=== PATIENT | male | born 1980 | race Caucasian/White ===

== ENCOUNTER 2017-07-19 11:48 | Emergency (ER) | payer BC ==
[2017-07-19 12:06] VITALS: BP 118/72
--- NOTE | 2017-07-19 14:14 | UC ---
Respiratory Complaint HPI - HPI Summary HPI Summary: worning cough chills and body aches---began at thanks giving now is having cough and fevers, fatigue and body aches - History of Current Complaint Chief Complaint: UCRespiratory Stated Complaint: COUGH,FEVER,CHILLS Time Seen by Provider: 07/19/17 13:37 Hx Obtained From: Patient Onset/Duration: Gradual Onset, Lasting Days, Still Present, Worse Since - past 3 -4 days Timing: Constant Severity Initially: Mild Severity Currently: Moderate Character: Cough: Productive Aggravating Factors: Nothing Alleviating Factors: Nothing Associated Signs And Symptoms: Positive: Fever, Chills, URI - Allergies/Home Medications Allergies/Adverse Reactions: Allergies Allergy/AdvReac Type Severity Reaction Status Date / Time Iodine Allergy Intermediate Hives Verified 07/19/17 11:59 Penicillins Allergy See Comment Verified 07/19/17 11:59 Home Medications: Home Medications ALPRAZolam TAB* [Xanax TAB*] 1 tab TID 07/19/17 [History Confirmed 07/19/17] Escitalopram Oxalate [Lexapro 10 mg] 30 mg DAILY 07/19/17 [History Confirmed ] PMH/Surg Hx/FS Hx/Imm Hx Previously Healthy: Yes Psychological History: Anxiety - Surgical History Surgical History: None - Family History Known Family History: Positive: None - Social History Occupation: Employed Full-time Lives: With Family Alcohol Use: Rare Substance Use Type: Marijuana Substance Use Comment - Amount & Last Used: last week Smoking Status (MU): Former Smoker Type: Cigarettes Amount Used/How Often: 5 CIGS DAILY Have You Smoked in the Last Year: Yes When Did the Patient Quit Smoking/Using Tobacco: 6 WEEKW AGO Household Exposure Type: Cigarettes - Immunization History Most Recent Influenza Vaccination: no Most Recent Tetanus Shot: unknown Review of Systems Constitutional: Fever, Chills, Fatigue Skin: Negative Eyes: Negative ENT: Negative, Ear Ache, Sinus Congestion Respiratory: Cough Cardiovascular: Negative Gastrointestinal: Negative Genitourinary: Negative Motor: Negative Neurovascular: Negative Musculoskeletal: Arthralgia, Myalgia Neurological: Headache Psychological: Negative Is Patient Immunocompromised?: No All Other Systems Reviewed And Are Negative: Yes Physical Exam Triage Information Reviewed: Yes Appearance: Well-Nourished, Ill-Appearing, Pain Distress Vital Signs: Initial Vital Signs Temp 98.7 F 07/19/17 12:00 Pulse 80 07/19/17 12:00 Resp 20 07/19/17 12:00 BP 118/72 07/19/17 12:00 Pulse Ox 97 07/19/17 12:00 Vital Signs Reviewed: Yes Eye Exam: Normal Eyes: Positive: Conjunctiva Clear ENT Exam: Normal ENT: Positive: Normal ENT inspection, Hearing grossly normal, Pharynx normal, Nasal congestion, TMs normal, Uvula midline. Negative: Nasal drainage, Tonsillar swelling, Tonsillar exudate, Trismus, Muffled voice, Hoarse voice, Dental tenderness, Sinus tenderness Dental Exam: Normal Neck exam: Normal Neck: Positive: Supple, Nontender, No Lymphadenopathy Respiratory Exam: Normal Respiratory: Positive: Chest non-tender, Lungs clear, Normal breath sounds, No respiratory distress, No accessory muscle use Cardiovascular Exam: Normal Cardiovascular: Positive: RRR, No Murmur, Pulses Normal, Brisk Capillary Refill Musculoskeletal Exam: Normal Musculoskeletal: Positive: Strength Intact, ROM Intact, No Edema Neurological Exam: Normal Neurological: Positive: Alert, Muscle Tone Normal Psychological Exam: Normal Skin Exam: Normal UC Diagnostic Evaluation - Laboratory O2 Sat by Pulse Oximetry: 97 Respiratory Course/Dx - Course Course Of Treatment: levoquin, ultram, increase fluids, tylenol, ibuprofen rest follow with pcp - Differential Dx/Diagnosis Provider Diagnoses: acute bronchitis Discharge - Discharge Plan Condition: Stable Disposition: HOME Prescriptions: Levofloxacin TAB* [Levaquin 500 Tab*] 500 mg PO DAILY #10 tab traMADol TAB* [Ultram*] 50 mg PO Q6HR PRN #16 tab MDD 4 PRN Reason: pain Patient Education Materials: Acute Bronchitis (ED), Fatigue (ED) Referrals: Chase Saez DO [Primary Care Provider] - 2 Weeks
--- OUTSIDE RECORDS SUMMARY | 2017-07-22 09:04 | XMS REPORT ---
:1980 External Reference #:[id number] Author Organization [facility] pc Address [address] [address] Phone [phone] Care Team Providers Name Role Phone Chase SaezDO Care Team Information Repairer Pump Unavailable Payers Type Date Identification Numbers Payment Provider Subscriber Health Maintenance Policy Number: BCBS Ppo Chase Bowser Organization (O) [id number] PayID: [id number] [address] [address] [place] [address] Problems Date Description Provider Status Onset: 07/05/2017 Irritable bowel syndrome with diarrhea Adrian Delcid DO Active Onset: 07/05/2017 Generalized anxiety disorder Adrian Delcid DO Active Family History Date Family Member(s) Problem(s) Comments Father Diabetes, Adult Father Hypertension Father Hypercholesterolemia Father [place] Father Heart Disease Father Anxiety Mother Depression Social History Type Date Description Comments Marital Status Lives With Spouse [employer] Hand Dominance RIGHT-handed ETOH Use Occasionally consumes alcohol Smoking Patient is a former smoker QUIT DECEMBER 2014 - PREVIOUSLY 1/2 PPD Daily Caffeine Does Not Consume Caffeine Allergies, Adverse Reactions, Alerts Date Description Reaction Status Severity Comments 12/27/2015 Penicillin active Joint Pain. 12/27/2015 Iodine active 12/27/2015 Shrimp active Medications Medication Date Status Form Strength Qnty SIG Indications Ordering Provider Alprazolam Active Tablets 0.5mg 270tabs 1 by F41.1 Bhavin 017 mouth Adrian, three DO times a day for anxiety code a Escitalopram Active Tablets 20mg 135tabs 1 2 by F41.1 Bhavin, Oxalate 016 mouth Adrian, every day DO Ibuprofen Active Capsules 200mg 90caps 1-2 tabs Bhavin, 016 by mouth Adrian, three DO times a day as needed with food or snack for pain Viberzi Hx Tablets 75mg 60tabs 1 by K58.0 Bhavin, 017 - mouth Adrian, twice a DO 017 day Escitalopram Hx Tablets 10mg 30tabs 1 by F41.1 Bhavin, Oxalate 016 - mouth Adrian, every day DO 016 Vital Signs Date Vital Result Comment 07/05/2017 Weight 292.00 lb Heart Rate 74 /min BP Systolic 122 mmHg BP Diastolic 82 mmHg Respiratory Rate 18 /min Height 70.5 inches 5'10.50" 07/05/17 BMI (Body Mass Index) 41.3 kg/m2 2017 Weight 308.00 lb Heart Rate 80 /min BP Systolic 126 mmHg BP Diastolic 76 mmHg Respiratory Rate 18 /min Height 70.5 inches 5'10.50" 12/28/16 BMI (Body Mass Index) 43.6 kg/m2 02/15/2017 Weight 305.56 lb Heart Rate 76 /min BP Systolic 126 mmHg BP Diastolic 88 mmHg Respiratory Rate 16 /min Height 70.5 inches 5'10.50" 12/28/16 BMI (Body Mass Index) 43.2 kg/m2 12/28/2016 Weight 306.00 lb Heart Rate 76 /min 72 Reg BP Systolic 124 mmHg BP Diastolic 72 mmHg BP Systolic Recheck 124 mmHg BP Diastolic Recheck 78 mmHg Respiratory Rate 16 /min Height 70.5 inches 5'10.50" 12/28/16 BMI (Body Mass Index) 43.3 kg/m2 08/17/2016 Weight 302.00 lb Heart Rate 72 /min BP Systolic 118 mmHg BP Diastolic 80 mmHg BP Systolic Recheck 110 mmHg BP Diastolic Recheck 80 mmHg Respiratory Rate 18 /min Height 70.25 inches 5'10.25" BMI (Body Mass Index) 43.0 kg/m2 04/17/2016 Weight 293.00 lb Heart Rate 66 /min BP Systolic 128 mmHg BP Diastolic 90 mmHg Respiratory Rate 18 /min 02/14/2016 Weight 289.00 lb Heart Rate 72 /min BP Systolic 120 mmHg BP Diastolic 90 mmHg Respiratory Rate 18 /min Height 70 inches 5'10" BMI (Body Mass Index) 41.5 kg/m2 12/27/2015 Weight 296.12 lb Heart Rate 78 /min BP Systolic 118 mmHg BP Diastolic 80 mmHg BP Systolic Recheck 120 mmHg BP Diastolic Recheck 80 mmHg Respiratory Rate 18 /min Height 70 inches 5'10" BMI (Body Mass Index) 42.5 kg/m2 Results Test Date Test Result H/L Range Note CBC With Auto Diff 12/28/2016 WBC 8.1 K/uL 4.1-11.0 RBC 5.22 M/uL 4.60-6.10 Hemoglobin 15.5 gm/dL 13.5-18.0 Hematocrit 45.9 % 41.0-53.0 MCV 88.0 fL 80.0-97.0 MCH 29.7 pg 27.0-32.0 MCHC 33.8 g/dL 32.0-36.0 RDW 13.6 % 11.5-14.5 PLT Count 289 K/ul 140-400 Neutrophil 62.5 % 35.0-75.0 Lymphocyte 27.9 % 16.0-52.0 Monocyte 6.6 % 2.0-10.0 Eosinophil 2.2 % 0.0-5.0 Basophil 0.8 % 0.0-4.0 Abs Neutrophils 5.1 K/uL 2.1-8.0 Abs Lymphocytes 2.3 K/uL 0.8-5.5 Abs Monocytes 0.5 K/uL 0.1-1.0 Abs Eosinophils 0.2 K/uL 0.0-0.5 Abs Basophils 0.1 K/uL 0.0-0.3 Comprehensive Metabolic (CMP) 12/28/2016 Sodium 142 mmol/L 135-146 1 Potassium 4.6 mmol/L 3.5-5.2 Chloride# 108 mmol/L 97-110 2 Carbon Dioxide 25 mmol/L 24-34 Glucose 95 mg/dL 70-105 BUN 13 mg/dL 6-26 Creatinine 0.9 mg/dL 0.5-1.4 Calcium 9.6 mg/dL 8.5-10.2 Total Protein 7.2 g/dL 6.0-8.0 Albumin 4.7 g/dL 3.6-4.9 Globulin 2.5 g/dL 2.0-3.5 A/G Ratio 1.9 Ratio 1.0-2.2 Total Bilirubin 0.5 mg/dL 0.1-1.3 Alkaline Phosphatase 41 U/L 24-140 Alt 37 U/L 3-42 Ast 26 U/L 8-42 Kathy Egfr >60 >60 3 Non Kathy Egfr >60 >60 4 Anion Gap 14 mmol/L 7-16 5 Lipid 12/28/2016 Cholesterol 172 mg/dL 50-199 Triglycerides 150 mg/dL 30-150 HDL 38 mg/dL Low 40-71 6 Chol/ HDL Ratio 4.5 ratio 4.0-6.7 VLDL 30 mg/dL High 2-29 LDL (Calc) 104 mg/dL 20-129 7 Laboratory test finding 12/28/2016 TSH 2.23 uIU/mL 0.35-4.94 Vitamin B12 401 pg/mL 180-914 Vit D,25 Hydroxy 32 ng/mL 31-100 Semen Post Vasectomy 11/20/2016 Volume 2.0 mL Not Estab. 8 Post-Vas Sperm, Qual (SEE NOTE) 8, 9 CBC With Auto Diff 12/27/2015 WBC 8.6 K/uL 4.1-11.0 10 RBC 5.52 M/uL 4.60-6.10 10 Hemoglobin 16.3 gm/dL 13.5-18.0 10 Hematocrit 47.8 % 41.0-53.0 10 MCV 86.5 fL 80.0-97.0 10 MCH 29.5 pg 27.0-32.0 10 MCHC 34.1 g/dL 32.0-36.0 10 RDW 13.2 % 11.5-14.5 10 PLT Count 283 K/ul 140-400 10 Neutrophil 62.9 % 35.0-75.0 10 Lymphocyte 27.6 % 16.0-52.0 10 Monocyte 7.3 % 2.0-10.0 10 Eosinophil 1.6 % 0.0-5.0 10 Basophil 0.6 % 0.0-4.0 10 Abs Neutrophils 5.4 K/uL 2.1-8.0 10 Abs Lymphocytes 2.4 K/uL 0.8-5.5 10 Abs Monocytes 0.6 K/uL 0.1-1.0 10 Abs Eosinophils 0.1 K/uL 0.0-0.5 10 Abs Basophils 0.1 K/uL 0.0-0.3 10 Comprehensive Metabolic (CMP) 12/27/2015 Sodium 138 mmol/L 134-142 10 Potassium 4.3 mmol/L 3.5-5.2 10 Chloride 104 mmol/L 97-109 10 Carbon Dioxide 27 mmol/L 24-34 10 Glucose 80 mg/dL 70-105 10 BUN 12 mg/dL 6-26 10 Creatinine 0.8 mg/dL 0.5-1.4 10 Calcium 9.8 mg/dL 8.5-10.2 10 Total Protein 7.7 g/dL 6.0-8.0 10 Albumin 4.7 g/dL 3.6-4.9 10 Globulin 3.0 g/dL 2.0-3.5 10 A/G Ratio 1.6 Ratio 1.0-2.2 10 Total Bilirubin 0.8 mg/dL 0.1-1.3 10 Alkaline Phosphatase 42 U/L 24-140 10 Alt 36 U/L 3-42 10 Ast 22 U/L 8-42 10 Anion Gap 11 mmol/L 6-14 10 Kathy Egfr >60 >60 10, 11 Non Kathy Egfr >60 >60 10, 12 Lipid 12/27/2015 Cholesterol 170 mg/dL 50-199 10 Triglycerides 148 mg/dL 30-150 10 HDL 37 mg/dL Low 40-71 10, 13 Chol/ HDL Ratio 4.6 ratio 4.0-6.7 10 VLDL 30 mg/dL High 2-29 10 LDL (Calc) 103 mg/dL 20-129 10, 14 Laboratory test finding 12/27/2015 TSH 2.89 uIU/mL 0.35-4.94 10 Vitamin B12 369 pg/mL 180-914 10 Vit D,25 Hydroxy 20 ng/mL Low 31-100 10 1 Updated reference range on new analyzer 2 Updated reference range on new analyzer 3 Concerning GFR Guidelines for Americans: Normal function or mild renal disease, if clinically at risk: >/=60 mL/min Moderately decreased: 30-59 Severely decreased: 15-29 Renal failure: <15 4 Concerning GFR Guidelines: Normal function or mild renal disease, if clinically at risk: >/=60 mL/min Moderately decreased: 30-59 Severely decreased: 15-29 Renal failure: <15 Glomerular Filtration Rate (GFR) is estimated based on the MDRD equation, which assumes a steady state for creatinine as recommended by the National Kidney Disease Education Program in conjunction with the National Institutes of Health and the National Kidney Foundation. Clinical conditions in which it may be necessary to measure GFR by using clearance methods include extremes of age and body size, severe malnutrition or obesity, diseases of skeletal muscle, paraplegia or quadriplegia, vegetarian diet, rapidly changing kidney function, and calculation of the dose of potentially toxic drugs that are excreted by the kidneys. 5 Updated reference range on new analyzer 6 Per NCEP ATP III Guidelines: Results lower than 40 mg/dL are suggestive of increased risk for coronary artery disease. Results > or=to 60 mg/dL are considered a negative risk factor. 7 Per NCEP ATP III Guidelines: Normal Population <130 Patients with medical conditions: CHD/DM Optimal: <100 Borderline high: 130-159 High: 160-189 Very high: >189 8 Z48.89 9 No sperm were seen in three aliquots of the uncentrifuged specimen, if sperm are present they are below the limit of detection. Performed at: - [facility] [id number] Doweling Machine Operator: Christina Mohamud MD, Phone: [phone] 10 TODAY 11 Concerning GFR Guidelines for Americans: Normal function or mild renal disease, if clinically at risk: >/=60 mL/min Moderately decreased: 30-59 Severely decreased: 15-29 Renal failure: <15 12 Concerning GFR Guidelines: Normal function or mild renal disease, if clinically at risk: >/=60 mL/min Moderately decreased: 30-59 Severely decreased: 15-29 Renal failure: <15 Glomerular Filtration Rate (GFR) is estimated based on the MDRD equation, which assumes a steady state for creatinine as recommended by the National Kidney Disease Education Program in conjunction with the National Institutes of Health and the National Kidney Foundation. Clinical conditions in which it may be necessary to measure GFR by using clearance methods include extremes of age and body size, severe malnutrition or obesity, diseases of skeletal muscle, paraplegia or quadriplegia, vegetarian diet, rapidly changing kidney function, and calculation of the dose of potentially toxic drugs that are excreted by the kidneys. 13 Per NCEP ATP III Guidelines: Results lower than 40 mg/dL are suggestive of increased risk for coronary artery disease. Results > or=to 60 mg/dL are considered a negative risk factor. 14 Per NCEP ATP III Guidelines: Normal Population <130 Patients with medical conditions: CHD/DM Optimal: <100 Borderline high: 130-159 High: 160-189 Very high: >189 Procedures Date CPT Code Description Status 12/29/2015 09955 ECHO Transthoracis 2D W Spectral Doppler Completed Encounters Type Date Location Provider CPT E/M Dx Office Visit 2017 11:45a [facility] [place] [address] F41.1 Office Visit 02/15/2017 10:15a [facility] [place] [address] F41.1 K58.0 Office Visit 12/28/2016 10:30a [facility] [place] [address] Z00.00 F41.1 K58.0 Z68.41 Office Visit 08/17/2016 11:00a [facility] [place] [address] F41.1 Office Visit 04/17/2016 11:15a [facility] [place] [address] F41.1 Z30.09 Office Visit 02/14/2016 1:15p [facility] [place] [address] F41.1 Office Visit 12/27/2015 10:30a [facility] [place] [address] Z00.00 F41.1 R01.1 K58.0 Plan of Care Future Appointment(s):01/06/2018 11:15 am - Chase Saez DO at [facility]07/05/2017 - Adrian Delcid DOF41.1 Generalized anxiety disorderComments:Doing ok. Reports episodes of worsening anxiety. Increase Lexapro 30mg daily. Continue Alprazolam 0.5mg 1 po q 8 hours prn . [employer] I-STOP web site consulted. Reference #: [id number] . Discussed side effects. Discussed risk of abuse and potential for addiction.Follow up:Follow up with doctor in [address] SaezK58.0 Irritable bowel syndrome with diarrheaComments:REPORTS SIDE EFFECTS FROM VIBERZI. DECLINES ANY FURTHER MEDICATIONS AT THIS TIME. RECOMMEND HIGH FIBER DIET AND FODMAPS DIET. CONTINUE GLUTEN FREE DIET.Follow up:Follow up with doctor in [address] Saez
== END 2017-07-19 14:30 | disposition home or self-care (01) ==
LOC: UCCORT 11:48
DX: J20.9 Acute bronchitis, unspecified (principal); F41.9 Anxiety disorder, unspecified; F12.90 Cannabis use, unspecified, uncomplicated; Z87.891 Personal history of nicotine dependence
CPT/HCPCS: 87502; 99212; G0463